=== PATIENT | male | born 1965 | race Caucasian/White ===

== ENCOUNTER 2018-10-28 11:06 | Emergency (ER) | payer OTHER ==
[2018-10-28] MEDS ORDERED: ADENOSINE 2 ML (11:10)
[2018-10-28 11:27] LABS: ADD MAN DIFF? NO
[2018-10-28 11:29] LABS: WHITE BLOOD COUNT 8.5 10^3/ul (4.8-10.8)
[2018-10-28 11:29] LABS: BASOPHIL # 0.1 10^3/ul (0.0-0.1); BASOPHILS % 1.1 % (0.0-2.0); EOSINOPHILS # 0.2 10^3/ul (0.0-0.5); EOSINOPHILS % 2.2 % (0.0-7.0); HEMATOCRIT 45.5 % (42.0-52.0); HEMOGLOBIN 14.4 g/dl (14.0-18.0); LYMPHOCYTES % 23.3 % (15.0-51.0); MEAN CORPUSCULAR HGB CONC 31.6 g/dl (32.0-37.0); MEAN CORPUSCULAR VOLUME 91.5 fl (82.0-101.0); MEAN PLATELET VOLUME 10.1 fl (7.4-10.4); MONOCYTE # 0.8 10^3/ul (0.3-0.9); MONOCYTES % 9.8 % (0.0-11.0); NEUTROPHIL # 5.2 10^3/ul (1.6-7.5); NEUTROPHILS % 60.9 % (39.0-77.0); PLATELET COUNT 304 10^3/UL (140-415); RED BLOOD COUNT 4.97 10^6/ul (4.70-6.10); RED CELL DISTRIBUTION WIDTH 13.8 % (11.5-14.5)
[2018-10-28 11:49] LABS: ANION GAP 12 (5-13); BLOOD UREA NITROGEN 19 mg/dl (7-20); CALCIUM 10.1 mg/dl (8.4-10.2); CARBON DIOXIDE 27 mmol/L (21-31); CHLORIDE 101 mmol/L (97-110); CREATININE 1.48 mg/dl (0.61-1.24); Estimated GFR 49 mL/min (>60); GLUCOSE 125 mg/dl (70-220); MAGNESIUM 2.2 mg/dl (1.7-2.5); POTASSIUM 4.4 mmol/L (3.5-5.1); SODIUM 140 mmol/L (135-144)
[2018-10-28 12:09] LABS: FREE T4 (FREE THYROXINE) 1.43 ng/dl (0.64-1.79)
[2018-10-28] MEDS: ADENOSINE 3 MG/ML 2ML VIAL IV (12:34)
[2018-10-28] MEDS: ADENOSINE 6 MG INJ IV (12:34)
== END 2018-10-28 12:51 | disposition home or self-care (01) ==
LOC: E/R 11:06
DX: I47.1 Supraventricular tachycardia (principal); Z79.01 Long term (current) use of anticoagulants
CPT/HCPCS: 36415; 71045; 80048; 83735; 84439; 84443; 85025; 93005; 96374; 99291-25